=== PATIENT | male | born 1990 | race Native Hawaiian/Other Pacific Islander ===

== ENCOUNTER 2021-07-12 02:25 | Emergency (ER) | payer OTHER ==
[~2021-07-12] VITALS: Ht 157.5 cm; Wt 56.7 kg
[2021-07-12 03:22] VITALS: BP 128/80; TEMP 98.2
== END 2021-07-12 03:29 | disposition left against medical advice (07) ==
LOC: ED 02:25
DX: Z53.21 Procedure and treatment not carried out due to patient leaving prior to being seen by health care provider (principal)
CPT/HCPCS: 99282